=== PATIENT | female | born 1950 | race Caucasian/White ===

== ENCOUNTER 2017-05-11 11:09 | Emergency (ER) | payer OTHER ==
[2017-05-11 11:24] VITALS: RESP 16
[2017-05-11 12:58] VITALS: BP 150/55; PULSE 70; O2SAT 98
== END 2017-05-11 13:16 | disposition left against medical advice (07) ==
DX: Z53.21 Procedure and treatment not carried out due to patient leaving prior to being seen by health care provider (principal)

== ENCOUNTER 2017-05-12 15:16 | Emergency (ER) | payer OTHER ==
[2017-05-12 15:25] VITALS: RESP 18; TEMP 97.3
--- NOTE | 2017-05-12 16:02 | CPEKG ---
Heart Rate: 60 RR Interval: 1000 P-R Interval: 156 QRSD Interval: 88 QT Interval: 436 QTC Interval: 436 P [place]: 80 QRS [place]: 72 T Wave [place]: 50 EKG Severity - NORMAL ECG - EKG Impression: SINUS RHYTHM Electronically Signed By: Tamela Rod 12-May-2017 22:02:49
--- NOTE | 2017-05-12 16:12 | EDPHY ---
H & P Time Seen by Provider: 05/12/17 15:47 HPI/ROS: CHIEF COMPLAINT: Hypertension HISTORY OF PRESENT ILLNESS: The patient is a 66-year-old female who presents to the emergency department with elevated blood pressure. Patient was seen in the emergency department yesterday. She left without being seen. Patient states that she was told that we did not tree blood pressures less severe over 200. The patient states that she has had ongoing elevated blood pressure. She is prescribed lisinopril 10 mg daily. However, the patient is not been compliant with her medication. Patient states she feels slightly fatigued. She has had intermittent left arm pain and back pain. She has no chest pain, arm pain, back pain at this time. She denies any other symptoms currently. She has no leg pain or swelling. The patient states that she may just be anxious. REVIEW OF SYSTEMS: My complete review of systems is negative except as mentioned in the HPI. Past Medical/Surgical History: Includes hypertension, anxiety Smoking Status: Never smoked Physical Exam: 36.3, 183/94, 66, 18, 96% on room air GENERAL: Well-appearing, in no acute distress, alert. HEENT: Eyes normal to inspection, normal pharynx, no signs of dehydration. NECK: No thyromegaly, no lymphadenopathy, supple. RESPIRATORY: Clear to auscultation bilaterally, no rales, rhonchi or wheezing. CVS: Regular rate and rhythm, no rubs, murmurs, or gallops. ABDOMEN: Soft, nontender, nondistended, no organomegaly. BACK: Normal to inspection, no CVA tenderness. SKIN: Normal color, no rash, warm, dry. No pallor. EXTREMITIES: No pedal edema, no calf tenderness, no Homans sign or cords, no joint swelling. NEURO/PSYCH: Alert and oriented x3, normal mood and affect, normal motor sensory exam. No obvious cranial nerve deficit. Constitutional: Initial Vital Signs Temperature (C) 36.3 C 05/12/17 15:21 Heart Rate 66 05/12/17 15:21 Respiratory Rate 18 05/12/17 15:21 Blood Pressure 183/94 H 05/12/17 15:21 O2 Sat (%) 96 05/12/17 15:21 O2 Delivery Mode Room Air Allergies/Adverse Reactions: No Known Allergies Allergy (Verified 05/12/17 15:21) Home Medications: Medication Instructions Recorded Aspirin 81mg (*) 05/11/17 Lisinopril 05/11/17 Zoloft 100mg (*) 05/11/17 Medical Decision Making ED Course/Re-evaluation: In the emergency department I discussed possible etiologies with the patient. I answered all her questions. IV was placed. Laboratory studies, EKG and chest x-ray were obtained. Patient was given aspirin to 324 mg orally. EKG shows normal sinus rhythm, normal rate, normal axis, normal intervals. There are no ST or T-wave abnormalities. EKG is normal as interpreted by me. Patient's white count was low at 3.6. The rest the CBC was normal. Chemistry panel unremarkable. Troponin negative. I discussed the results with the patient. I answered all her questions. On recheck she had no complaints. She is given warnings prior to leaving. She will follow up with primary care physician tomorrow. Differential Diagnosis: My differential includes but is not limited to ACS, acute [place], hypertensive emergency, hypertensive urgency, viral illness, anxiety - Data Points Laboratory Results: Laboratory Results 05/12/17 16:30 05/12/17 16:30 05/12/17 05/12/17 16:30 16:30 WBC 3.66 10^3/uL L 10^3/uL (3.80-9.50) RBC 4.78 10^6/uL 10^6/uL (4.18-5.33) Hgb 14.8 g/dL g/dL (12.6-16.3) Hct 43.7 % % (38.0-47.0) MCV 91.4 fL fL (81.5-99.8) MCH 31.0 pg pg (27.9-34.1) MCHC 33.9 g/dL g/dL (32.4-36.7) RDW 13.0 % % (11.5-15.2) Plt Count 245 10^3/uL 10^3/uL (150-400) MPV 8.7 fL fL (8.7-11.7) Neut % (Auto) 55.5 % % (39.3-74.2) Lymph % (Auto) 31.4 % % (15.0-45.0) [place] % (Auto) 10.4 % % (4.5-13.0) Eos % (Auto) 1.6 % % (0.6-7.6) Baso % (Auto) 1.1 % % (0.3-1.7) Nucleat RBC Rel Count 0.0 % % (0.0-0.2) Absolute Neuts (auto) 2.03 10^3/uL 10^3/uL (1.70-6.50) Absolute Lymphs (auto) 1.15 10^3/uL 10^3/uL (1.00-3.00) Absolute Monos (auto) 0.38 10^3/uL 10^3/uL (0.30-0.80) Absolute Eos (auto) 0.06 10^3/uL 10^3/uL (0.03-0.40) Absolute Basos (auto) 0.04 10^3/uL 10^3/uL (0.02-0.10) Absolute Nucleated RBC 0.00 10^3/uL 10^3/uL (0-0.01) Immature Gran % 0.0 % % (0.0-1.1) Immature Gran # 0.00 10^3/uL 10^3/uL (0.00-0.10) Sodium 142 mEq/L mEq/L (135-145) Potassium 4.4 mEq/L mEq/L (3.5-5.2) Chloride 106 mEq/L mEq/L (97-110) Carbon Dioxide 26 mEq/l mEq/l (22-31) Anion Gap 10 mEq/L mEq/L (8-16) BUN 19 mg/dL mg/dL (7-23) Creatinine 1.0 mg/dL mg/dL (0.6-1.0) Estimated GFR 55 Glucose 87 mg/dL mg/dL (70-100) Calcium 9.3 mg/dL mg/dL (8.5-10.4) Troponin I < 0.012 ng/mL ng/mL (0.000-0.034) Departure - Departure Disposition: Home, Routine, Self-Care Clinical Impression: Hypertension Qualifiers: Hypertension type: unspecified Qualified Code(s): I10 - Essential (primary) hypertension Condition: Good Instructions: Hypertension (ED) Additional Instructions: Return with increasing headache, chest pain, weakness, numbness or any other concerns. You may take an extra dose of lisinopril at night if you continue to have elevated Blood pressure. Referrals: Izabela Romero MD [Primary Care Provider] - 2-3 days, call for appt.
[2017-05-12 16:40] LABS: PLATELET COUNT 245 10^3/uL (150-400)
[2017-05-12 17:31] VITALS: PULSE 68; O2SAT 95
[2017-05-12 17:40] VITALS: BP 179/97
== END 2017-05-12 17:41 | disposition home or self-care (01) ==
DX: I10 Essential (primary) hypertension (principal); Z79.82 Long term (current) use of aspirin

== ENCOUNTER → 2018-07-04 | Outpatient (CLI) | payer OTHER | LOC: BMCIMAGING 12:24 | PROVIDERS: ATTEND Internal Medicine | DX: Z12.31 Encounter for screening mammogram for malignant neoplasm of breast (principal) ==